=== PATIENT | female | born 2000 | race Caucasian/White ===

== ENCOUNTER → 2020-05-22 14:31 | Outpatient (CLI) | payer BC, SELFPAY ==
--- NOTE | ~2020-05-22 | US_ITS ---
EXAMINATION: US renal BI DATE: 05/22/2020 15:03 INDICATION: Abdominal pain. Flank pain. TECHNIQUE: Multiple ultrasound grayscale images of the kidneys were obtained. COMPARISON: None. FINDINGS: The right kidney measures 9.8 x 4.1 x 5.7 cm. The left kidney measures 9.8 x 5.1 x 5.1 cm. The kidney s demonstrate normal parenchymal echogenicity. There is no hydronephrosis. The bladder is normal. IMPRESSION: 1. Normal kidneys. No hydronephrosis. Reviewed, dictated and finalized at location B. [employer]
--- NOTE | ~2020-05-22 | US_ITS ---
EXAMINATION: US pelvic complete DATE: 05/22/2020 15:03 INDICATION: Pelvic pain. TECHNIQUE: Multiple transabdominal sonographic images of the pelvis were obtained. COMPARISON: None. FINDINGS: The uterus measures 6.9 x 2.9 x 4.5 cm. There is no free fluid in the pelvis. The endometrial complex measures 5 mm in thickness. The right ovary measures 3.4 x 2.2 x 2.1 cm. The left ovary measures 2.0 x 1.7 x 1.9 cm. There is normal vascular flow in the ovaries. IMPRESSION: 1. Normal pelvis. Reviewed, dictated and finalized at location B. T[employer] SPECIALIST IMPRESSION: 1. Normal pelvis.
== END ==
PROVIDERS: PCP Emergency Medicine; Visit Provider Emergency Medicine
DX: R10.2 Pelvic and perineal pain (principal)
CPT/HCPCS: 76775; 76856

== ENCOUNTER 2021-06-25 14:24 | Outpatient (CLI) | payer BC, SELFPAY ==
--- NOTE | ~2021-06-25 | US_ITS ---
EXAMINATION: US venous doppler LE RT DATE: 06/25/2021 14:52 INDICATION: Right lower limb pain. TECHNIQUE: Grayscale ultrasound images without and with compression and Doppler ultrasound images of the right lower extremity veins were obtained. COMPARISON: None. FINDINGS: The visualized portions of right common femoral vein, profunda (deep) femoral vein, femoral vein, pop liteal vein, peroneal veins, posterior tibial veins, and greater saphenous vein outflow are patent. IMPRESSION: 1. No deep venous thrombosis. Reviewed, dictated and finalized at location A. HERDER
== END 2021-06-25 14:25 | disposition home or self-care (01) ==
PROVIDERS: PCP Emergency Medicine; Visit Provider Emergency Medicine
DX: M79.661 Pain in right lower leg (principal)
CPT/HCPCS: 93971

== ENCOUNTER 2021-09-16 21:57 | Emergency (ER) | payer BC, SELFPAY ==
[2021-09-16 22:15] VITALS: BP 113/62; PULSE 78; RESP 18; TEMP 36.9; O2SAT 100
[2021-09-16 23:55] LABS: Basophils Absolute Auto 0.1 K/mm3 (0.0-0.1); Eosinophils Absolute Auto 0.3 K/mm3 (0-0.3); Eosinophils Percent Auto 3.5 % (0-4.4); Hematocrit 40.1 % (37.0-47.0); Hemoglobin 13.1 g/dL (12.0-15.0); Immature Granulocyte Absolute 0.02 K/mm3 (0.00-0.031); Immature Granulocyte Percent A 0.2 % (0-0.5); Lymphocytes Absolute Auto 3.72 K/mm3 (0.9-3.2); Lymphocytes Percent Auto 42.1 % (18.3-44.2); Mean Corpuscular HGB Conc 32.7 g/dl (32-36); Mean Corpuscular Hemoglobin 29.7 pg (26-34); Mean Corpuscular Volume 90.9 fl (80-100); Monocytes Absolute Auto 0.4 K/mm3 (0.1-0.6); Monocytes Percent Auto 4.9 % (2.6-8.5); Neutrophils Absolute Auto 4.3 K/mm3 (1.3-6.7); Neutrophils Percent Auto 48.3 % (45.5-73.1); Platelet Count Result 290 k/mm3 (150-375); Red Blood Count 4.41 M/mm3 (4.2-5.4); Red Cell Distribution Width 12.4 % (11.5-14.5); White Blood Count 8.8 K/mm3 (4.5-10.0)
[2021-09-17 00:06] LABS: Anion Gap 7 mmol/L (8-16); Blood Urea Nitrogen 12 mg/dL (7-17); Calcium 8.7 mg/dL (8.4-10.2); Carbon Dioxide 25 mmol/L (22-30); Chloride 107 mmol/L (98-107); Estimated CRCL calculation 94 ml/min; Estimated Glomerular Filt Rate > 60; Glucose 85 mg/dL (65-110); Potassium 4.2 mmol/L (3.4-5.0); Sodium 139 mmol/L (137-145)
[2021-09-17 00:12] LABS: INR 1.1; Prothrombin Time 13.8 Seconds (11.1-14.7)
[2021-09-17 00:13] LABS: Partial Thromboplastin Time 29.9 SECONDS (22.3-36.8)
[2021-09-17 00:21] LABS: D Dimer 0.27 ug/mL (<0.48)
--- NOTE | 2021-09-17 00:28 | ED.EXTPRO ---
HPI - Extremity Problem General Chief complaint: Extremity Problem,Nontraumatic Stated complaint: leg pain Time Seen by Provider: 09/16/21 22:50 Source: patient Mode of arrival: ambulatory Limitations: no limitations History of Present Illness HPI Narrative: 21 year old female with history of PAIZ who is supposed to be worked up for EDS presents today with complaints of leg pain with some swelling. Patient states she was worked up for blood clot about 2-3 months ago but she still has concerns today. States she has intermittent swelling to right leg with leg pain and also noted pain the left lower thigh with bruising but she is unsure how she got it. Pain to the left left is like sharp stabbing. Patient denies recent travel, smoking, or control usage. Related Data Allergies Allergy/AdvReac Type Severity Reaction Status Date / Time No Known Allergies Allergy Unverified 08/17/18 14:19 Review of Systems Review of Systems: CONSTITUTIONAL: Denies fever, chills, or sweats. EYES: Denies visual changes, redness, or discharge. ENT: Denies rhinorrhea, congestion, sore throat, or otalgia. CARDIOVASCULAR: Denies chest pain, palpitations, or edema. RESPIRATORY: Denies cough or dyspnea. GASTROINTESTINAL: Denies abdominal pain, nausea, vomiting, or diarrhea. GENITOURINARY: Denies dysuria or hematuria. SKIN: Bruising to left lower thigh. Intermittent swelling to right leg with right leg pain. Denies rash or itching. MUSCULOSKELETAL: Denies back pain, joint pain, or myalgia. NEUROLOGIC: Denies headache, numbness, dizziness, or weakness. PSYCHIATRIC: Denies anxiety or depression. [facility] Social History Social History Smoking status: Never smoker Exam Narrative: GENERAL: Well-appearing, well-nourished, and in no acute distress. HEAD: Normocephalic, atraumatic. EYES: PERRLA and EOMI. ENT: Nares clear, no rhinorrhea or epistaxis. Mucous membranes moist. Oropharynx without tonsillar hypertrophy exudate or other lesions. Bilateral TMs pearly cantrell nonbulging NECK: Supple. No adenopathy or masses. No carotid bruits or JVD CHEST: Clear to auscultation. No respiratory distress. No wheezes rales or rhonchi HEART: Regular rate and rhythm. No murmur heard. Normal peripheral pulses. ABDOMEN: Soft, nontender, nondistended, normal active bowel sounds. EXTREMITIES: Normal range of motion. No edema. +2 pedal pulses. SKIN: 2 cm by half centimeter purple-blue ecchymotic area to left thigh. Warm, dry, no rash. NEURO: No focal deficits. Alert and oriented x3. PSYCH: Normal mood and affect. Course Vital Signs Vital signs: Vital Signs Temperature 36.9 C 09/16/21 22:15 Pulse Rate 78 09/16/21 22:15 Respiratory Rate 18 09/16/21 22:15 Blood Pressure 113/62 09/16/21 22:15 Pulse Oximetry 100 09/16/21 22:15 Temperature 36.9 C 09/16/21 22:15 Pulse Rate 78 09/16/21 22:15 Respiratory Rate 18 09/16/21 22:15 Blood Pressure 113/62 09/16/21 22:15 Pulse Oximetry 100 09/16/21 22:15 MDM - Extremity (Nontraumatic) MDM Narrative Medical decision making narrative: 21-year-old female presents today with intermittent right leg swelling and bilateral leg pain. Patient D-dimer negative. Will have patient follow-up as scheduled for further work-up. Differential Diagnosis Differential diagnosis: Likely lower extremity edema, deep vein thrombosis of lower extremity and other (Pain to lower extremity) Medical Records Attestation: I reviewed the patient's medical records. Lab Data Attestation: I reviewed the patient's lab results. Result diagrams: 09/16/21 23:49 09/16/21 23:49 Labs: Lab Results 09/16/21 09/16/21 09/16/21 Range/Units 23:49 23:49 23:49 WBC 8.8 (4.5-10.0) K/mm3 RBC 4.41 (4.2-5.4) M/mm3 Hgb 13.1 (12.0-15.0) g/dL Hct 40.1 (37.0-47.0) % MCV 90.9 (80-100) fl MCH 29.7 (26-34) pg MCHC 32.7 (
[2021-09-17 00:30] VITALS: BP 124/65; PULSE 62; RESP 16; TEMP 36.6; O2SAT 98
== END 2021-09-17 00:31 | disposition home or self-care (01) ==
PROVIDERS: Emergency Provider Nurse Practitioner Family; PCP Emergency Medicine
DX: M79.604 Pain in right leg (principal); M79.605 Pain in left leg
CPT/HCPCS: 36415; 80048; 85025; 85380; 85610; 85730; 99283

== ENCOUNTER → 2021-12-20 16:28 | Outpatient (CLI) | payer BC, SELFPAY ==
--- NOTE | ~2021-12-20 | XR_ITS ---
EXAMINATION: XR tibia fibula RT 2V INDICATION: Right leg pain TECHNIQUE: Two views of the right tibia and fibula are obtained on four radiographs. COMPARISON: None available FINDINGS: Bone alignment is normal. There is no fracture. The joint spaces are normal. IMPRESSION: 1. No acute osseous abnormality. Reviewed, dictated and finalized at location A.
== END ==
PROVIDERS: PCP Emergency Medicine; Visit Provider Emergency Medicine
DX: M79.661 Pain in right lower leg (principal)
CPT/HCPCS: 73590